=== PATIENT | female | born 1980 | race Two or more races ===

== ENCOUNTER 2018-06-29 13:25 | Emergency (ER) | payer SELFPAY ==
[~2018-06-29] VITALS: Ht 154.9 cm; Wt 66.2 kg
[2018-06-29 13:58] VITALS: BP 136/55
[2018-06-29] MEDS ORDERED: CHLO15MO2 PO (14:22)
[2018-06-29] MEDS ORDERED: PENI500T PO (14:22)
[2018-06-29] MEDS ORDERED: NAPR-695 PO (14:22)
--- NOTE | 2018-06-29 14:23 | PHYS DOC ---
Past Medical History Past Medical History: Kidney Stone Past Surgical History: No Surgical History Alcohol Use: None Drug Use: None Adult General Chief Complaint Chief Complaint: DENTAL PROBLEM HPI HPI Patient is a 38 year old male who presents to the ER with complaints of RUQ dental pain that has increased over the last 2 days. Pt states he has had dental pain for several months. He denies any fever, nausea, vomiting, sore throat, or ear pain. Currently he rates his pain a 10/10 and states that nothing makes the pain better. He has been taking tylenol at home for relief. Review of Systems Review of Systems Constitutional: Denies fever or chills [] HENT: Denies nasal congestion or sore throat; see HPI [] Respiratory: Denies cough or shortness of breath [] Cardiovascular: No additional information not addressed in HPI [] GI: Denies abdominal pain, nausea, vomiting, or diarrhea [] Integument: Denies rash or skin lesions [] Neurologic: Denies headache, focal weakness or sensory changes [] Complete systems were reviewed and found to be within normal limits, except as documented in this note. Allergies Allergies Allergies Coded Allergies Type Severity Reaction Last Updated Verified No Known Drug Allergies 06/29/18 No Physical Exam Physical Exam Constitutional: Well developed, well nourished, no acute distress, non-toxic appearance. [] HENT: Normocephalic, atraumatic, bilateral external ears normal, oropharynx moist, no oral exudates, nose normal; diffuse dental decay with broken teeth noted in RLQ of mouth, mild edema and erythema of gingiva consistent with gingivitis [] Eyes: conjunctiva normal, no discharge. [] Neck: Normal range of motion, supple, no stridor. [] Cardiovascular:Heart rate regular rhythm, no murmur [] Lungs & Thorax: Bilateral breath sounds clear to auscultation [] Skin: Warm, dry, no erythema, no rash. [] Neurologic: Alert and oriented X 3, normal motor function, normal sensory function, no focal deficits noted. [] Psychologic: Affect normal, judgement normal, mood normal. [] Current Patient Data Vital Signs Vital Signs Date Time Temp Pulse Resp B/P (MAP) Pulse Ox O2 Delivery O2 Flow Rate FiO2 06/29/18 13:58 98.4 89 16 136/55 (82) 100 Room Air 98.4 EKG EKG [] Radiology/Procedures Radiology/Procedures [] Course & Med Decision Making Course & Med Decision Making Pertinent Labs and Imaging studies reviewed. (See chart for details) [] Katerina Disclaimer [place] Disclaimer This electronic medical record was generated, in whole or in part, using a voice recognition dictation system. Departure Departure Impression: Primary Impression: Infected dental caries Additional Impressions: Dentalgia Gingivitis Disposition: 01 HOME, SELF-CARE Condition: STABLE Referrals: UNKNOWN PCP NAME (PCP) Patient Instructions: Dental Caries-Brief, Gingivitis, [id number] Additional Instructions: Fill the prescriptions and use as directed. Use the provided dental referral list to follow up with a dentist. Return to the ER if symptoms worsen. Scripts Naproxen (NAPROXEN) 375 Mg Tablet 375 MG PO BID for 10 Days, #20 TAB 0 Refills take with food Prov: SAMUEL CLAYTON APRN 06/29/18 Chlorhexidine Gluconate (PERIDEX) 15 Ml Mouthwash 15-30 ML PO TID for 7 Days, #473 ML 0 Refills Prov: SAMUEL CLAYTON APRN 06/29/18 Penicillin V Potassium (PENICILLIN V POTASSIUM) 500 Mg Tablet 500 MG PO QID for 10 Days, #40 TAB 0 Refills Prov: SAMUEL CLAYTON APRN 06/29/18 Problem Qualifiers SAMUEL CLAYTON APRN Jun 29, 2018 14:23
== END 2018-06-29 14:39 | disposition home or self-care (01) ==
LOC: ER 13:25
DX: K05.10 Chronic gingivitis, plaque induced (principal); K02.9 Dental caries, unspecified; Z87.442 Personal history of urinary calculi; S02.5XXA Fracture of tooth (traumatic), initial encounter for closed fracture; X58.XXXA Exposure to other specified factors, initial encounter; Y93.89 Activity, other specified; Y92.89 Other specified places as the place of occurrence of the external cause; Y99.8 Other external cause status
CPT/HCPCS: 99283